=== PATIENT | female | born 1980 | race Hispanic/Latino ===

== ENCOUNTER 2017-10-26 09:02 | Outpatient (CLI) | payer BC ==
--- NOTE | 2017-10-26 11:46 | CT ---
CT HEAD NONCONTRAST: CTA [place] [facility] [place]: CLINICAL HISTORY: Subarachnoid hemorrhage. TECHNIQUE: Three-dimensional volume rendering performed. CT arteriogram of the [place] [facility] [place]. FINDINGS: Noncontrast head CT reveals no evidence of intracranial hemorrhage, mass effect, midline shift, or ve ntriculomegaly. There is prominent fluid of each maxillary sinus, as well as opacification of the fr ontal and ethmoid sinuses. Three-dimensional volume rendering CTA imaging of the [place] does not reveal a discrete ane urysm. There is appropriate patency of the visualized anterior and posterior circulations. The imag ed distal ICA, bilaterally, reveals no significant abnormality. IMPRESSION: 1. No acute intracranial hemorrhage. 2. No discrete pathology of the [place]. 3. Prominent paranasal sinus disease with a large volume of fluid involving each maxillary sinus. C orrelate for acute sinusitis. POS: [facility]
== END 2017-10-26 09:03 | disposition home or self-care (01) ==
LOC: TBSIIMAG 09:02
PROVIDERS: ATTEND Neurological Surgery
DX: I60.9 Nontraumatic subarachnoid hemorrhage, unspecified (principal); J32.0 Chronic maxillary sinusitis
CPT/HCPCS: 70496